=== PATIENT | male | born 1940 | race Caucasian/White ===

== ENCOUNTER 2016-03-16 22:52 | Observation (INO) | payer MEDICARE, BC ==
[~2016-03-16] VITALS: Ht 162.6 cm; Wt 75.0 kg
[2016-03-17 00:20] LABS: BASOPHILS 0.1 % (0.0-2.0); EOSINOPHILS 4.5 % (0-7); HEMOGLOBIN 10.3 g/dL (13.5-17.5); IMMATURE GRANULOCYTES 0.1 % (0-5); MCH 29.3 pg (26.0-34.0); MCHC 31.2 g/dL (31.0-37.0); MCV 93.8 fL (80.0-100.0); MEAN PLATELET VOLUME 10.7 fL (7.4-10.4); MONOCYTES 10.4 % (2-11); NEUTROPHILS 72.9 % (40-80); RBC 3.52 10x6/uL (4.20-6.10); RDW 15.2 % (11.5-14.5); WBC 8.5 10x3/uL (4.8-10.8)
[2016-03-17 00:27] LABS: PLATELET COUNT 127 10x3/uL (130-400)
[2016-03-17 00:28] LABS: ALBUMIN 3.4 g/dL (3.4-5.0); ALKALINE PHOSPHATASE 93 U/L (46-116); ALT (SGPT) 17 U/L (10-68); BILIRUBIN - TOTAL 0.61 mg/dL (0.2-1.3); CALC OSMOLALITY 284 mosm/kg (275-300); CALCIUM 8.9 mg/dL (8.5-10.1); CARBON DIOXIDE 32.4 mmol/L (21.0-32.0); CHLORIDE - SERUM 102 mmol/L (98-107); CREATININE - SERUM 1.5 mg/dL (0.6-1.3); GLUCOSE 111 mg/dL (74-106); POTASSIUM - SERUM 3.8 mmol/L (3.5-5.1); PROTEIN - SERUM 6.6 g/dL (6.4-8.2); SODIUM 141 mmol/L (136-145); UREA NITROGEN 22 mg/dL (7-18); eGFR NON AFRICAN AMERICAN 48 mL/min (90-120)
[2016-03-17 00:35] LABS: CREATINE KINASE 57 UL (21-232); PRO BNP 5821 pg/mL (0-450)
[2016-03-17 00:37] LABS: MAGNESIUM - SERUM 1.6 mg/dL (1.8-2.4); TROPONIN-I < 0.017 ng/mL (0.000-0.060)
[2016-03-17 03:53] LABS: CREATINE KINASE 76 UL (21-232)
[2016-03-17 03:54] LABS: TROPONIN-I < 0.017 ng/mL (0.000-0.060)
--- NOTE | 2016-03-17 05:35 | NUR ---
PT ARRIVES FROM ER VIA STRETCHER ACCOMAPNIED BY SPOUSE AND ER NURSE. ASSISTED INTO BED. ADMISSION ASSESSMENT AND HISTORY COMPLETED. VSS, AFEBRILE. RESP EVEN AND UNLABORED. MEDICATIONS RECONCILED AT THE BEDSIDE. UNIT ROUTINES DISCUSSED WITH PT AND HIS SPOUSE, THEY VERBALIZE UNDERSTANDING. CALL LIGHT PLACED WITHIN REACH. WILL CONT TO MONITOR.
[2016-03-17 05:43] VITALS: BP 121/86; BMI 29.2
[2016-03-17] MEDS ORDERED: PLAVIX75 MG PO (05:56)
[2016-03-17] MEDS ORDERED: K-TAB10 MEQ PO (05:58)
[2016-03-17] MEDS ORDERED: RESTORIL15 MG PO (05:58)
[2016-03-17] MEDS ORDERED: ASPIRIN325 MG PO (05:58)
[2016-03-17] MEDS ORDERED: COREG 3.1253.125 MG PO (05:59)
[2016-03-17] MEDS ORDERED: CELEXA40 MG PO (05:59)
[2016-03-17] MEDS ORDERED: FUROSEMIDE40 MG PO (06:00)
[2016-03-17] MEDS ORDERED: ZYLOPRIM300 MG PO (06:00)
[2016-03-17] MEDS ORDERED: PROSCAR5 MG PO (06:01)
[2016-03-17] MEDS ORDERED: BACTRIM DS TABL1 TAB PO (06:02)
[2016-03-17] MEDS ORDERED: PROAIR HFA8.5 GM (06:10)
[2016-03-17 07:18] VITALS: BP 161/86
[2016-03-17 08:03] VITALS: BP 141/99
--- NOTE | 2016-03-17 10:31 | NUR ---
TELEMETRY CAF. HEPRIN GTT INFUSING. CALL LIGHT IN REACH. WILL CONT. PLAN OF CARE.
[2016-03-17 12:11] VITALS: BP 152/88
[2016-03-17 13:15] VITALS: Ht 162.6 cm; Wt 75.0 kg
--- NOTE | 2016-03-17 13:30 | NUR ---
REFUSES ENEMA AT THIS TIME. TOLD HIM TO TELL ME WHEN HE WAS READY FOR IT.
[2016-03-17 15:52] VITALS: BP 145/82
[2016-03-17 20:30] VITALS: BP 164/90
[2016-03-17] MEDS ORDERED: BENICAR40 MG PO (20:38)
[2016-03-18 00:10] VITALS: BP 141/78
--- NOTE | 2016-03-18 02:15 | NUR ---
PT RESTING WELL WITHOUT C/O DISTRESS NOTED. NO NEEDS VOICED. CALL LIGHT WITHIN REACH. WILL CONT TO MONITOR.
[2016-03-18 04:20] VITALS: BP 165/94
[2016-03-18 05:05] LABS: BASOPHILS 0 % (0.0-2.0); EOSINOPHILS 0 % (0-7); HEMATOCRIT 32.6 % (42.0-54.0); HEMOGLOBIN 10.3 g/dL (13.5-17.5); IMMATURE GRANULOCYTES 0.1 % (0-5); LYMPHOCYTES 3.8 % (15-50); MCH 29.3 pg (26.0-34.0); MCHC 31.6 g/dL (31.0-37.0); MCV 92.6 fL (80.0-100.0); MEAN PLATELET VOLUME 11.2 fL (7.4-10.4); MONOCYTES 2.8 % (2-11); NEUTROPHILS 93.3 % (40-80); PLATELET COUNT 132 10x3/uL (130-400); RBC 3.52 10x6/uL (4.20-6.10); RDW 15.3 % (11.5-14.5); WBC 8.5 10x3/uL (4.8-10.8)
[2016-03-18 05:25] LABS: ALBUMIN 3.3 g/dL (3.4-5.0); ANION GAP 13.6 mmol/L (8-16); BILIRUBIN - TOTAL 0.56 mg/dL (0.2-1.3); CALCIUM 9.3 mg/dL (8.5-10.1); CARBON DIOXIDE 33.7 mmol/L (21.0-32.0); CREATININE - SERUM 1.8 mg/dL (0.6-1.3); MAGNESIUM - SERUM 1.8 mg/dL (1.8-2.4); PHOSPHOROUS 3.8 mg/dL (2.5-4.9); POTASSIUM - SERUM 3.3 mmol/L (3.5-5.1); PROTEIN - SERUM 6.6 g/dL (6.4-8.2)
[2016-03-18 08:22] VITALS: BP 151/81
--- NOTE | 2016-03-18 09:24 | NUR ---
REPOSITIONED FOR COMFORT. TELEMETRY CAF. RESP UL ON 02 2L NC. CALL LIGHT IN REACH. WILL CONT. PLAN OF CARE.
[2016-03-18] MEDS ORDERED: VIBRAMYCIN 100100 MG PO (10:48)
[2016-03-18] MEDS ORDERED: ELIQUIS2.5 MG PO (10:49)
[2016-03-18] MEDS ORDERED: MEDROL DOSE PACK4 MG PO (10:50)
[2016-03-18] MEDS ORDERED: LASIX INJ40 MG/4 ML PO (10:50)
[2016-03-18] MEDS ORDERED: FLORAJEN3 CAPS460 MG PO (10:50)
[2016-03-18] MEDS ORDERED: K-TAB10 MEQ PO (10:50)
[2016-03-18 12:07] VITALS: BP 153/85
--- NOTE | 2016-03-18 12:41 | NUR ---
IV AND TELEMETRY DCD. DC PLANS GIVEN. UNDERSTANDING VOICED. ESCORTED TO CAR BY W/C.
--- NOTE | 2016-03-23 11:11 | CN ---
PATIENT NAME:JENNIE JURADO MEDICAL RECORD: [id number] : 38 LOCATION:D. D.[id number] ADMIT DATE: 03/17/16 ACCOUNT: [id number] CONSULTING PHYSICIAN: GLEN PARRA MD REFERRING PHYSICIAN: TINO MEIER DO DATE OF CONSULTATION: 03/17/2016 Cardiology Consultation DIAGNOSES: 1. Chronic obstructive pulmonary disease. 2. Shortness of breath, dyspnea on exertion. 3. Cardiomyopathy. 4. Coronary artery disease. 5. Congestive heart failure, chronic systolic dysfunction. HISTORY OF PRESENT ILLNESS: Mr. Jurado presents with increasing shortness of breath, dyspnea on exertion. He does have a cardiomyopathy. His ejection fraction was previously in the 30% range. He has coronary artery disease, has 100% stenosis to the LAD, which is chronic. No significant disease of the other vessels. His last ejection fraction was 2 months ago. This is actually improved up to 40% to 45%. He has not been having any chest pain or chest discomfort, only shortness of breath. This has been in conjunction with the cough and productive sputum as well. His chest x-ray is not compatible with congestive heart failure. His BNP is mildly elevated, but this is most likely chronic. REVIEW OF SYSTEMS: The patient reports easy bruising but reports no swollen glands. The patient reports no fever, no night sweats, no significant weight gain, no significant weight loss. No significant exercise tolerance. The patient reports no dry eyes, no irritation, no vision change. Patient reports no difficulty hearing and no ear pain. Patient reports no frequent nose bleeds or nose and sinus problems. Patient reports on arm pain on exertion. No shortness of breath while lying down. No history of heart murmur. Patient reports no cough, no wheezing or coughing up blood. Patient reports no abdominal pain, no vomiting. Normal appetite. No diarrhea and not vomiting blood. No nausea and no constipation. Patient reports no incontinence. No difficulty urinating. No hematuria. No increased frequency. Patient reports no muscle aches. No weakness, no arthralgias, no back pain. No swelling of the extremities. Patient reports no abnormal mole, no jaundice, no rashes. Reports no loss of consciousness. No weakness and no numbness. No seizures, dizziness, or headaches. The patient reports no depression, no sleep disturbance, feeling safe in a relationship and no alcohol abuse. Patient reports on fatigue. Reports no runny nose or sinus pressure. No itching, no hives, and no frequent sneezing. PHYSICAL EXAMINATION: GENERAL APPEARANCE: Well-nourished, well-developed, appears stated age. Level of distress, comfortable. PSYCHIATRIC: Mental status, alert, normal affect. Orientation, oriented to time, place and person. EYES: Lids and conjunctiva, noninjected. No discharge, no pallor. ENT: Lips, teeth, gums, normal dentition. Oropharynx, no cyanosis, no pallor. NECK: Carotid arteries, bilateral normal upstroke, no bruits, no thrills. JUGULAR VEINS: No jugular venous pressure or distention. CONSULT REPORT [id number] JENNIE JURADO CERVICAL LYMPH NODES: Nontender, nonenlarged. THYROID: Not enlarged. Nontender. No nodules. LUNGS: Respiratory effort, unlabored. CHEST: Normal curvature. No thoracic deformity. No chest wall tenderness. Percussion, resonant. Auscultation, clear. No wheezes, no rales, no rhonchi. CARDIOVASCULAR: Precordial exam, nondisplaced. No heaves or pericardial thrills. Rate and rhythm, regular. Heart sounds, normal S1, normal S2. No S3, no gallop, no rub. Systolic murmur, not heard. Diastolic murmur, not heard. EXTREMITIES: No cyanosis, no edema. Peripheral pulses, full and equal in all extremities, except as noted. No bruits appreciated. ABDOMEN: Soft, nondistended. Normal aorta. No bruit. Nontender. No masses. Liver, nontender, no hepatomegaly. Spleen, nontender, no splenomegaly. MUSCULOSKELETAL: No joint tenderness. No joint swelling. No erythema. NEUROLOGICAL: Normal gait, normal strength, normal tone. SKIN: Warm and dry. OVERALL IMPRESSION: Most likely this is bronchitis, chronic obstructive pulmonary disease. EKG is with no changes. Troponin is normal and he is stable from the standpoint of ischemic heart disease. He is also stable from the standpoint of his chronic systolic dysfunction. At this time, no other cardiac workup or treatment is necessary. TRANSINT:[id number] Voice Confirmation ID: [id number] DOCUMENT ID: [id number] GLEN PARRA MD at 1111 CC: [id number] DICTATION DATE: 03/17/16 1057 TONGUE CARRIER: 03/17/16 1111 DIS IN 03/18/16 [id number] [place] [id number]
== END 2016-03-18 12:43 | disposition home or self-care (01) ==
LOC: D.ER 22:52 → OBSVTIME 03-17 03:34 → D.M2 03-17 03:34
PROVIDERS: Emergency Medicine; ADMIT Family Medicine
DX: I48.91 Unspecified atrial fibrillation (principal); J44.9 Chronic obstructive pulmonary disease, unspecified; I42.9 Cardiomyopathy, unspecified; I50.22 Chronic systolic (congestive) heart failure; D64.9 Anemia, unspecified; E83.42 Hypomagnesemia

== ENCOUNTER 2017-05-08 15:19 | Emergency (ER) | payer MEDICARE, BC ==
[2016-03-17 13:15] VITALS: BMI 28.4
[~2017-05-08 15:19] MED LIST: ASPIRIN325 MG PO; BACTRIM DS TABL1 TAB PO; BENICAR40 MG PO; CELEXA40 MG PO; COREG 3.1253.125 MG PO; ELIQUIS2.5 MG PO; FLORAJEN3 CAPS460 MG PO; FUROSEMIDE40 MG PO; K-TAB10 MEQ PO; LASIX INJ40 MG/4 ML PO; MEDROL DOSE PACK4 MG PO; PLAVIX75 MG PO; PROAIR HFA8.5 GM; PROSCAR5 MG PO; RESTORIL15 MG PO; VIBRAMYCIN 100100 MG PO; ZYLOPRIM300 MG PO
[2017-05-08 16:10] LABS: BASOPHILS 0.5 % (0-2); HEMATOCRIT 34.9 % (42.0-54.0); IMMATURE GRANULOCYTES 0.2 % (0-5); LYMPHOCYTES 11.5 % (15-50); MCH 29.1 pg (26.0-34.0); MCHC 31.5 g/dL (31.0-37.0); MCV 92.3 fL (80.0-100.0); MEAN PLATELET VOLUME 10.6 fL (7.4-10.4); MONOCYTES 12.6 % (2-11); NEUTROPHILS 70.2 % (40-80); PLATELET COUNT 136 10x3/uL (130-400); RBC 3.78 10x6/uL (4.20-6.10); RDW 16.1 % (11.5-14.5); WBC 6.3 10x3/uL (4.8-10.8)
[2017-05-08 16:43] LABS: ALBUMIN 3.4 g/dL (3.4-5.0); ANION GAP 11.4 mmol/L (8-16); BILIRUBIN - TOTAL 0.47 mg/dL (0.2-1.3); CALCIUM 8.9 mg/dL (8.5-10.1); CARBON DIOXIDE 29.2 mmol/L (21.0-32.0); CREATININE - SERUM 1.7 mg/dL (0.6-1.3); POTASSIUM - SERUM 3.6 mmol/L (3.5-5.1)
[2017-05-08 18:24] LABS: APPEARANCE CLEAR (CLEAR); BILIRUBIN NEGATIVE (NEGATIVE); COLOR YELLOW (YELLOW); GLUCOSE NEGATIVE (NEGATIVE); KETONE NEGATIVE (NEGATIVE); NITRITE NEGATIVE (NEGATIVE); PROTEIN TRACE mg/dL (NEGATIVE); SPECIFIC GRAVITY 1.015 (1.005-1.020); UROBILINOGEN NORMAL (NORMAL)
[2017-05-08 18:26] LABS: RED CELLS - URINE 0-5 /hpf (0-5)
[2017-05-08 18:27] LABS: BACTERIA MODERATE /hpf (NONE SEEN)
== END 2017-05-08 19:36 | disposition home or self-care (01) ==
LOC: D.ER 15:19
PROVIDERS: Emergency Medicine
DX: K59.00 Constipation, unspecified (principal); J44.9 Chronic obstructive pulmonary disease, unspecified; E11.9 Type 2 diabetes mellitus without complications; D64.9 Anemia, unspecified; Z79.01 Long term (current) use of anticoagulants; I12.9 Hypertensive chronic kidney disease with stage 1 through stage 4 chronic kidney disease, or unspecified chronic kidney disease; N18.9 Chronic kidney disease, unspecified

== ENCOUNTER 2017-05-14 14:15 | Emergency (ER) | payer MEDICARE, BC ==
[2016-03-17 13:15] VITALS: BMI 28.4
[2017-05-14 16:04] LABS: BASOPHILS 0.1 % (0-2); EOSINOPHILS 5.4 % (0-7); HEMATOCRIT 32.1 % (42.0-54.0); HEMOGLOBIN 10.3 g/dL (13.5-17.5); IMMATURE GRANULOCYTES 0.3 % (0-5); LYMPHOCYTES 11.3 % (15-50); MCH 29.9 pg (26.0-34.0); MCHC 32.1 g/dL (31.0-37.0); MEAN PLATELET VOLUME 11.6 fL (7.4-10.4); MONOCYTES 11.1 % (2-11); NEUTROPHILS 71.8 % (40-80); PLATELET COUNT 138 10x3/uL (130-400); RBC 3.45 10x6/uL (4.20-6.10); RDW 16.6 % (11.5-14.5); WBC 7.9 10x3/uL (4.8-10.8)
[2017-05-14 16:12] LABS: INR 3.77 (0.85-1.17); PROTIME 36.4 SECONDS (11.6-15.0)
[2017-05-14 16:21] LABS: ALBUMIN 3.5 g/dL (3.4-5.0); ANION GAP 10.1 mmol/L (8-16); BILIRUBIN - TOTAL 0.71 mg/dL (0.2-1.3); CARBON DIOXIDE 31.9 mmol/L (21.0-32.0); CREATININE - SERUM 1.8 mg/dL (0.6-1.3); PROTEIN - SERUM 7.1 g/dL (6.4-8.2)
== END 2017-05-14 18:55 | disposition home or self-care (01) ==
LOC: D.ER 14:15
PROVIDERS: Emergency Medicine
DX: S30.1XXA Contusion of abdominal wall, initial encounter (principal); X58.XXXA Exposure to other specified factors, initial encounter; Y93.9 Activity, unspecified; Y92.019 Unspecified place in single-family (private) house as the place of occurrence of the external cause; N18.9 Chronic kidney disease, unspecified; Z79.01 Long term (current) use of anticoagulants; J44.9 Chronic obstructive pulmonary disease, unspecified; E11.9 Type 2 diabetes mellitus without complications; I50.9 Heart failure, unspecified

== ENCOUNTER → 2017-06-21 09:20 | Outpatient (CLI) | payer MEDICARE, BC ==
[2016-03-17 13:15] VITALS: BMI 28.4
== END | disposition home or self-care (01) ==
LOC: D.RAD 09:20
DX: K59.00 Constipation, unspecified (principal); R63.4 Abnormal weight loss; R19.4 Change in bowel habit

== ENCOUNTER → 2017-12-18 12:21 | Outpatient (CLI) | payer MEDICARE, BC ==
[2016-03-17 13:15] VITALS: BMI 28.4
== END | disposition home or self-care (01) ==
LOC: D.RAD 12:21
DX: M79.604 Pain in right leg (principal)

== ENCOUNTER → 2017-12-25 11:01 | Outpatient (CLI) | payer MEDICARE, BC ==
[2016-03-17 13:15] VITALS: BMI 28.4
== END | disposition home or self-care (01) ==
LOC: D.RAD 11:01
DX: M79.671 Pain in right foot (principal)